=== PATIENT | male | born 1995 | race Two or more races ===

== ENCOUNTER 2025-02-22 17:43 | Emergency (ER) | payer BC ==
[~2025-02-22] VITALS: Ht 172.7 cm; Wt 71.2 kg
[2025-02-22] MEDS ORDERED: METOCLOPRAMIDE HCL 10 MG/2 ML VIAL ONE (18:59)
[2025-02-22 19:03] LABS: PLATELET COUNT (AUTO) 265 K/uL (150-450); RED BLOOD CELL COUNT(AUTO) 4.35 MIL/uL (4.5-6.0); RED CELL DISTRIBUTION WIDTH 13.1 % (11.5-15.0); WHITE BLOOD COUNT (AUTO) 6.8 K/uL (4.3-11.0)
[2025-02-22] MEDS: IV NS 0.9% 1,000 ML BAG IV ONE (19:05)
[2025-02-22] MEDS: METOCLOPRAMIDE HCL 10 MG/2 ML VIAL IV ONE (19:06)
[2025-02-22 19:11] LABS: APPEARANCE,URINE CLEAR (CLEAR); BLOOD, URINE NEGATIVE Ery/uL (NEGATIVE); LEUKOCYTE ESTERASE ,URINE NEGATIVE (NEGATIVE); NITRITE, URINE NEGATIVE (NEGATIVE); UGLUCOSE NEGATIVE (NEGATIVE)
[2025-02-22 19:19] LABS: CALCIUM, SERUM 8.6 mg/dL (8.5-10.1); CREATININE 0.8 mg/dL (0.6-1.3); SODIUM SERUM 140.0 mmol/L (136-145); UREA NITROGEN, BLOOD 8.0 mg/dL (7-18)
[2025-02-22 19:24] LABS: ASPARTATE AMINOTRANSFERASE 21.0 U/L (15-37); TOTAL PROTEIN, SERUM 7.0 g/dL (6.4-8.2)
[2025-02-22] MEDS ORDERED: IV NS 0.9% 250 ML IV ONE (19:33)
[2025-02-22] MEDS ORDERED: CT SWABBABLE VALVE TRANS SET 1 EA INFUS.SET MC ONE (19:33)
[2025-02-22] MEDS ORDERED: IOHEXOL-300 100 ML VIAL IV ONE (19:33)
[2025-02-22] MEDS ORDERED: DICY10CA13 PO (20:36)
[2025-02-22] MEDS ORDERED: POLY119P PO (20:36)
[2025-02-22 20:49] VITALS: BP 104/60; TEMP 98; O2SAT 100
== END 2025-02-22 20:50 | disposition home or self-care (01) ==
LOC: ER 17:52
DX: R10.31 Right lower quadrant pain (principal); Z88.1 Allergy status to other antibiotic agents; Z90.49 Acquired absence of other specified parts of digestive tract; Z60.2 Problems related to living alone
CPT/HCPCS: 99285; 74177; 96374; 96361; 85025; 80048; 87086; 83690; 80076; 81003; 36415; J2765; J7030; J7050; Q9967